=== PATIENT | male | born 1985 | race Caucasian/White ===

== ENCOUNTER 2022-03-10 23:33 | Emergency (ER) | payer SELFPAY ==
[~2022-03-10] VITALS: Ht 177.8 cm; Wt 111.1 kg
--- NOTE | 2022-03-11 00:10 | NUR ---
pt in room 5a states he was in an [facility] 3 days ago and has head and shoulder pain.
--- NOTE | 2022-03-11 00:20 | NUR ---
Dr. Schmidt at bedside for MSE.
[2022-03-11] MEDS ORDERED: OXYCODONE/APAP 5-325 MG TABLET ONE (00:26)
[2022-03-11] MEDS ORDERED: CYCLOBENZAPRINE HCL 10 MG TABLET ONE (00:27)
[2022-03-11] MEDS ORDERED: CYCLOBENZAPRINE HCL 10 MG TABLET PO ONE (00:30)
[2022-03-11] MEDS ORDERED: OXYCODONE/APAP 5-325 MG TABLET PO ONE (00:30)
--- NOTE | 2022-03-11 00:46 | NUR ---
pt taken for cat scan.
--- NOTE | 2022-03-11 00:59 | NUR ---
pt returned from cat scan.
[2022-03-11] MEDS ORDERED: HYDR-4209 PO (02:14)
[2022-03-11] MEDS ORDERED: CYCL10TA9 PO (02:14)
[2022-03-11 03:22] VITALS: BP 122/73
--- NOTE | 2022-03-11 03:22 | NUR ---
Patient discharged to home in stable condition. Written and verbal after care instructions given. Patient verbalizes understanding of instructions. Stressed follow up or return to ER for worsening s/s.
== END 2022-03-11 03:23 | disposition home or self-care (01) ==
LOC: ER 23:39
DX: S16.1XXA Strain of muscle, fascia and tendon at neck level, initial encounter (principal); V49.9XXA Car occupant (driver) (passenger) injured in unspecified traffic accident, initial encounter; Y92.410 Unspecified street and highway as the place of occurrence of the external cause; M25.511 Pain in right shoulder; F17.210 Nicotine dependence, cigarettes, uncomplicated; R03.0 Elevated blood-pressure reading, without diagnosis of hypertension
CPT/HCPCS: 72125; 73030; A4663